=== PATIENT | male | born 1965 | race Two or more races ===

== ENCOUNTER 2024-07-22 04:53 | Emergency (ER) | payer OTHER ==
[~2024-07-22] VITALS: Ht 165.1 cm; Wt 72.6 kg
[2024-07-22] MEDS ORDERED: COZAAR25 MG (05:23)
[2024-07-22] MEDS ORDERED: TOPROL XL25 M1 (05:23)
[2024-07-22] MEDS ORDERED: RINGERS SOLUTION,LACTATED 500 ML IV STA (05:41)
[2024-07-22] MEDS ORDERED: NITROGLYCERIN 0.4 MG TAB.SUBL SL STA (05:42)
[2024-07-22] MEDS ORDERED: CLOPIDOGREL BISULFATE 75 MG TABLET PO STA (05:43)
[2024-07-22] MEDS ORDERED: ENALAPRIL MALEATE 2.5 MG TABLET PO STA (05:44)
[2024-07-22] MEDS ORDERED: ASPIRIN 81 MG TAB.CHEW PO STA (05:44)
[2024-07-22 08:04] LABS: HEMATOCRIT 45.4 % (39.0-48.0); HEMOGLOBIN 15.9 g/dL (13-16.00); MEAN CELL VOLUME 88.1 fL (80.0-100.00); MEAN CORPUSCULAR HEMOGLOBIN 30.8 pg (27.00-32.0); MEAN CORPUSCULAR HGB CONC 34.9 g/dl (32.0-36.0); PLATELET COUNT 232 K/uL (150-450); RED BLOOD COUNT 5.15 M/uL (4.00-6.00); RED CELL DISTRIBUTION WIDTH 13.6 % (11.5-14.5)
[2024-07-22 08:22] LABS: ALBUMIN 4.1 gm/dL (3.4-5.0); BILIRUBIN TOTAL 0.47 mg/dL (0.3-1.2); CALCIUM 8.8 mg/dL (8.5-10.1); CREATININE SERUM 0.91 mg/dL (0.70-1.30); GFR 85.57; GLOBULINA 2.8 G/DL (2.4-3.5); POTASSIUM 4.04 mEq/L (3.5-5.1); TOTAL PROTEIN 6.9 gm/dL (6.4-8.2)
== END 2024-07-22 09:08 | disposition home or self-care (01) ==
LOC: ER 04:55
DX: R00.2 Palpitations (principal); R07.89 Other chest pain; I10 Essential (primary) hypertension

== ENCOUNTER 2025-02-05 23:51 | Emergency (ER) | payer OTHER ==
[~2025-02-05] VITALS: Ht 162.6 cm; Wt 78.5 kg
[~2025-02-05 23:51] MED LIST: COZAAR25 MG; TOPROL XL25 M1
[2025-02-06] MEDS ORDERED: HYDROCHLOROTH12.5 M2 PO (00:19)
== END 2025-02-06 | disposition left against medical advice (07) ==
LOC: ER 02-06 00:01
DX: Z53.21 Procedure and treatment not carried out due to patient leaving prior to being seen by health care provider (principal)